=== PATIENT | male | born 1945 | race Caucasian/White ===

== ENCOUNTER 2017-02-19 12:03 | Observation (INO) | payer OTHER, MEDICARE ==
[~2017-02-19] VITALS: Ht 182.9 cm; Wt 93.8 kg
[~2017-02-19 12:03] MED LIST: ALL DAY ALLERGY10 MG PO; ASPIR 8181 M1 PO; CENTRUM SILVER1 EAC3 PO; CORDARONE200 MG PO; CRESTOR20 MG PO; ECOTRIN325 MG PO; METOPROLOL SUCC25 MG PO; MIRALAX17 GM PO; NEXIUM40 MG PO; NITROSTAT0.4 MG SL; OMEGA PO; OMEGA-3 + VITA1 EAC1 PO; PLAVIX75 MG PO; PRILOSEC20 MG PO; PRINIVIL5 MG PO; SIMVASTATIN80 M1 PO; TYLENOL EXTRA500 MG PO; ZANTAC150 MG PO; ZESTORETIC 20-1 EAC1 PO; ZYRTEC10 M1 PO
[2017-02-19 13:38] LABS: EOSINOPHIL (%) 0.6 % (0-5); IMMATURE GRANULOCYTE (%) 0.4 % (0.0-0.7); INSTRUMENT ABS NEUTROPHIL CT 3.5 K/uL; LYMPHOCYTE COUNT 1.3 K/uL (1.0-2.8); MCH 28.4 PG (29.0-34.0); MCV 85.8 FL (86-99); MEAN PLAT.VOLUME 11.4 uM^3 (9.0-12.4); MONOCYTE (%) 8.2 % (3-12); MONOCYTE COUNT 0.4 K/uL (0-0.8); NEUTROPHIL (%) 65.5 % (45-76); NEUTROPHIL COUNT 3.5 K/uL (1.8-6.4); PLATELET COUNT 156 K/uL (156-360); RBC DIS.WIDTH-CV 12.9 % (11.8-14.6); RBC DIS.WIDTH-SD 39.6 % (39-53); RED BLOOD COUNT 5.36 M/uL (4.00-5.50); WHITE BLOOD COUNT 5.3 K/uL (4.1-10.2)
[2017-02-19 13:47] LABS: CHLORIDE 106 mEq/L (99-109); POTASSIUM 4.4 mEq/L (3.7-5.4); SODIUM 140 mEq/L (136-147)
[2017-02-19 13:48] LABS: INTER. NORMALIZED RATIO 1.1; PROTHROMBIN TIME 10.8 (9.2-11.2); PTT 25.3 (25-32)
[2017-02-19 13:49] LABS: GLUCOSE 102 mg/dL (70-99)
[2017-02-19 13:50] LABS: ANION GAP 7 MEQ/L (2-14)
[2017-02-19 13:53] LABS: GFR ESTIMATE (CALCULATED) > 59 mL/min/; UREA NITROGEN (BUN) 14 mg/dL (9-23)
[2017-02-19 14:00] LABS: TROP-I INTERPRETATION NEGATIVE; TROPONIN-I < 0.01 ng/mL (0.0-0.30)
[2017-02-19] MEDS ORDERED: NITROSTAT0.4 MG SL (15:22)
[2017-02-19] MEDS ORDERED: HEARTBURN RELIE20 MG PO (15:22)
[2017-02-19 17:15] VITALS: BP 162/75
[2017-02-19 19:30] VITALS: BP 132/68
[2017-02-19 21:07] LABS: TROP-I INTERPRETATION NEGATIVE; TROPONIN-I 0.01 ng/mL (0.0-0.30)
[2017-02-20 02:23] LABS: TROP-I INTERPRETATION NEGATIVE; TROPONIN-I 0.01 ng/mL (0.0-0.30)
[2017-02-20 04:05] VITALS: BP 128/69
[2017-02-20 08:47] VITALS: BP 157/82
== END 2017-02-20 11:19 | disposition home or self-care (01) ==
LOC: EME 12:03 → EDOF 15:02 → 5WEST 15:02
PROVIDERS: Emergency Medicine; Internal Medicine
DX: R07.89 Other chest pain (principal); I10 Essential (primary) hypertension; E78.5 Hyperlipidemia, unspecified; I25.10 Atherosclerotic heart disease of native coronary artery without angina pectoris; R73.9 Hyperglycemia, unspecified; Z95.5 Presence of coronary angioplasty implant and graft; Z95.1 Presence of aortocoronary bypass graft
CPT/HCPCS: 71010; 80048; 84484; 85025; 85610; 85730; 93005; 99281; 99284; G0378

== ENCOUNTER 2018-02-11 13:21 | Emergency (ER) | payer OTHER, MEDICARE ==
[~2018-02-11] VITALS: Ht 180.3 cm; Wt 98.0 kg
[~2018-02-11 13:21] MED LIST changes: +HEARTBURN RELIE20 MG PO
[2018-02-11 14:07] LABS: HEMATOCRIT 46.4 % (38.0-50.0); HEMOGLOBIN 15.9 G/DL (12.5-16.6); MCH 30.5 PG (29.0-34.0); MCHC 34.3 G/DL (30.0-36.0); MCV 88.9 FL (86-99); PLATELET COUNT 148 K/uL (156-360); RBC DIS.WIDTH-CV 12.6 % (11.8-14.6); RBC DIS.WIDTH-SD 41.1 % (39-53); RED BLOOD COUNT 5.22 M/uL (4.00-5.50); WHITE BLOOD COUNT 6.9 K/uL (4.1-10.2)
[2018-02-11 14:29] LABS: ALBUMIN 4.3 G/DL (3.2-4.8); CHLORIDE 104 MEQ/L (99-109); POTASSIUM 4.4 MEQ/L (3.7-5.4); SODIUM 139 MEQ/L (136-147); TOTAL BILIRUBIN 0.8 MG/DL (0.0-1.0)
[2018-02-11 14:35] LABS: ALKALINE PHOSPHATASE 46 IU/L (3-129); ALT (GPT) 22 IU/L (3-49); AST (GOT) 22 IU/L (2-34); CREATININE 1.1 MG/DL (0.6-1.3); GFR ESTIMATE (CALCULATED) > 59 mL/min/ (58.99-99999); GLUCOSE 118 mg/dL (70-99); LIPASE 39 U/L (1.0-51.0); TOTAL PROTEIN 6.8 G/DL (6.4-8.3); UREA NITROGEN (BUN) 17 mg/dL (9-23)
[2018-02-11] MEDS ORDERED: ZOFRAN4 MG PO (16:35)
[2018-02-11] MEDS ORDERED: LOMOTIL TABLET1 EACH PO (16:35)
[2018-02-11 16:55] VITALS: BP 146/77
== END 2018-02-11 16:55 | disposition home or self-care (01) ==
LOC: EME 13:21
DX: A08.4 Viral intestinal infection, unspecified (principal); I10 Essential (primary) hypertension; I25.10 Atherosclerotic heart disease of native coronary artery without angina pectoris; K21.9 Gastro-esophageal reflux disease without esophagitis; Z95.1 Presence of aortocoronary bypass graft; Z95.5 Presence of coronary angioplasty implant and graft; Z85.828 Personal history of other malignant neoplasm of skin; Z86.74 Personal history of sudden cardiac arrest; Z79.82 Long term (current) use of aspirin; Z88.6 Allergy status to analgesic agent; Z88.5 Allergy status to narcotic agent; Z88.8 Allergy status to other drugs, medicaments and biological substances
CPT/HCPCS: 80053; 81003; 83690; 85027; 99281; 99285; J2405; J7030